=== PATIENT | female | born 1955 | race African-American/Black ===

== ENCOUNTER 2024-08-12 02:43 | Emergency (ER) | payer OTHER ==
[2024-08-12 03:05] VITALS: BP 162/75; PULSE 96; RESP 18; TEMP 98.6; BMI 37.0
[2024-08-12] MEDS ORDERED: diazePAM 5 MG TABLET ONE (03:30)
[2024-08-12] MEDS ORDERED: KETOROLAC TROMETHAMINE 30 MG/1 ML VIAL ONE (03:30)
[2024-08-12] MEDS ORDERED: LIDOCAINE 4% PATCH TP ONE (03:30)
[2024-08-12] MEDS: LIDOCAINE 4% PATCH TP ONE (03:40)
[2024-08-12] MEDS: KETOROLAC TROMETHAMINE 30 MG/1 ML VIAL IM ONE (03:40)
[2024-08-12] MEDS: diazePAM 5 MG TABLET PO ONE (03:41)
[2024-08-12] MEDS ORDERED: ACETAMINOPHEN 325 MG TABLET (FP) ONE (04:03)
[2024-08-12] MEDS: ACETAMINOPHEN 325 MG TABLET (FP) PO ONE (04:31)
[2024-08-12] MEDS ORDERED: LIDOCAINE PATCH REMOVAL MC ONE (15:00)
== END 2024-08-12 04:33 | disposition home or self-care (01) ==
LOC: JER 02:43
PROC: 3E0133Z Introduction of Anti-inflammatory into Subcutaneous Tissue, Percutaneous Approach (ICD-10-PCS; principal; 2024-08-12)
DX: M54.42 Lumbago with sciatica, left side (principal); G89.29 Other chronic pain
CPT/HCPCS: 99284-25